=== PATIENT | female | born 1970 | race Caucasian/White ===

== ENCOUNTER → 2017-01-12 | Outpatient (CLI) | payer MEDICARE, OTHER ==
[~2017-01-12] MED LIST: CLARITIN10 MG PO; HYDROCHLOROTH12.5 MG PO; IBUPROFEN800 MG PO; NORCO 10-325 T1 EACH PO; OMEPRAZOLE40 MG PO
[2017-01-12 11:39] LABS: HEMOGLOBIN 12.9 gm/dl (12.3-15.3); RED BLOOD COUNT 4.16 M/UL (4.00-5.10); WHITE BLOOD COUNT 6.1 K/UL (4.5-11.0)
[2017-01-12 12:06] LABS: BUN/CREATININE RATIO 16 (0-10)
== END ==
LOC: LAB 11:01
DX: R74.8 Abnormal levels of other serum enzymes (principal); B19.10 Unspecified viral hepatitis B without hepatic coma
CPT/HCPCS: 36415; 80053; 85027; 85610

== ENCOUNTER 2020-11-11 18:13 | Emergency (ER) | payer MEDICARE, OTHER ==
[~2020-11-11 18:13] MED LIST changes: +CIPRO500 MG PO; +FLONASE 0.05% N16 GM; +LEVAQUIN750 MG PO; +NAPROSYN500 MG PO; +PREVACID 24HR15 MG PO; +TAGAMET PO; +ZANAFLEX4 MG PO; +ZOFRAN ODT4 MG PO
[2020-11-11] MEDS ORDERED: ZYRTEC10 MG PO (22:19)
[2020-11-11] MEDS ORDERED: TESSALON PERLE100 MG PO (22:19)
[2020-11-11] MEDS ORDERED: FLONASE 0.05% N16 GM (22:19)
== END 2020-11-11 22:30 | disposition home or self-care (01) ==
LOC: ER1 18:13
DX: J06.9 Acute upper respiratory infection, unspecified (principal); H92.03 Otalgia, bilateral; F17.210 Nicotine dependence, cigarettes, uncomplicated; Z88.2 Allergy status to sulfonamides; Z20.828 Contact with and (suspected) exposure to other viral communicable diseases
CPT/HCPCS: 87081; 87880; 99283; U0002

== ENCOUNTER 2021-10-04 22:27 | Emergency (ER) | payer OTHER ==
[~2021-10-04 22:27] MED LIST changes: +TESSALON PERLE100 MG PO; +ZYRTEC10 MG PO
[2021-10-05] MEDS ORDERED: LODINE CAP 300300 MG PO (02:10)
[2021-10-05] MEDS ORDERED: NORFLEX 100 MG100 MG PO (02:10)
== END 2021-10-05 02:25 | disposition home or self-care (01) ==
LOC: ER1 22:27
DX: S73.101A Unspecified sprain of right hip, initial encounter (principal); S93.401A Sprain of unspecified ligament of right ankle, initial encounter; S83.91XA Sprain of unspecified site of right knee, initial encounter; S96.911A Strain of unspecified muscle and tendon at ankle and foot level, right foot, initial encounter; F17.290 Nicotine dependence, other tobacco product, uncomplicated; K21.9 Gastro-esophageal reflux disease without esophagitis; Z88.2 Allergy status to sulfonamides; Z88.5 Allergy status to narcotic agent; W19.XXXA Unspecified fall, initial encounter
CPT/HCPCS: 72128; 73502; 73552; 73564; 73590; 73610; 73630; 99284

== ENCOUNTER 2021-12-23 19:55 | Emergency (ER) | payer OTHER ==
[~2021-12-23 19:55] MED LIST changes: +LODINE CAP 300300 MG PO; +NORFLEX 100 MG100 MG PO
[2021-12-23] MEDS ORDERED: HYDROCODON-ACE1 EAC4 PO (20:50)
[2021-12-23] MEDS ORDERED: PEPCID20 MG PO (20:50)
[2021-12-23] MEDS ORDERED: ULTRAM50 MG PO (20:54)
== END 2021-12-23 21:42 | disposition home or self-care (01) ==
LOC: ER1 19:55
DX: S62.501A Fracture of unspecified phalanx of right thumb, initial encounter for closed fracture (principal); F17.200 Nicotine dependence, unspecified, uncomplicated; I10 Essential (primary) hypertension; Z86.73 Personal history of transient ischemic attack (TIA), and cerebral infarction without residual deficits; Y04.0XXA Assault by unarmed brawl or fight, initial encounter; Y92.009 Unspecified place in unspecified non-institutional (private) residence as the place of occurrence of the external cause
CPT/HCPCS: 29125; 73130; 99283

== ENCOUNTER 2021-12-26 17:59 | Emergency (ER) | payer OTHER ==
[~2021-12-26 17:59] MED LIST changes: +HYDROCODON-ACE1 EAC4 PO; +PEPCID20 MG PO; +ULTRAM50 MG PO
== END 2021-12-26 20:35 | disposition home or self-care (01) ==
LOC: ER1 17:59
DX: S63.501A Unspecified sprain of right wrist, initial encounter (principal); S63.91XA Sprain of unspecified part of right wrist and hand, initial encounter; F17.200 Nicotine dependence, unspecified, uncomplicated; Y08.89XA Assault by other specified means, initial encounter
CPT/HCPCS: 29125; 73110; 73130; 96372; 99283; J1885

== ENCOUNTER 2022-04-03 10:40 | Emergency (ER) | payer OTHER ==
[2022-04-03 11:11] LABS: HEMOGLOBIN 11.7 gm/dl (12.3-15.3); RED BLOOD COUNT 3.79 M/UL (4.00-5.10); WHITE BLOOD COUNT 6.6 K/UL (4.5-11.0)
[2022-04-03 11:44] LABS: BUN/CREATININE RATIO 18 (0-10)
== END 2022-04-03 18:45 | disposition home or self-care (01) ==
LOC: ER1 10:40
PROVIDERS: Physician Assistant
DX: R06.02 Shortness of breath (principal); F15.10 Other stimulant abuse, uncomplicated; F17.210 Nicotine dependence, cigarettes, uncomplicated; Z88.2 Allergy status to sulfonamides
CPT/HCPCS: 71045; 80053; 80307; 82550; 82553; 83605; 84484; 85025; 85379; 93005; 96374; 96375; 99285; J2060; J2405; Q9967